=== PATIENT | female | born 1985 | race Caucasian/White ===

== ENCOUNTER 2019-10-01 04:58 | Inpatient (IN) ==
[2019-10-01] MEDS ORDERED: CITRIC ACID/SODIUM CITRATE 30 ML UDCUP PO ONE (05:10)
[2019-10-01] MEDS ORDERED: FAMOTIDINE 20 MG/2 ML VIAL IV ONE (05:10)
[2019-10-01] MEDS: LACTATED RINGERS 1,000 ML IV SCH ×2 (05:26→13:19)
[2019-10-01 05:43] LABS: Basophils % 0.4 % (0.0-0.8); Eosinophils # 0.2 10*3/uL (0.0-0.87); Eosinophils % 1.9 % (0.00-10.9); Hematocrit 43.6 VOL% (35.7-47.0); Hemoglobin 14.2 GM/DL (12.0-16.0); Immature Granulocytes % 0.9 %; Immature Granulocytes Absolute 0.09 #; Lymphocytes # 2.9 10*3/uL (1.4-4.0); Mean Corpuscular HGB Conc 32.6 GM/DL (32-36); Mean Corpuscular Volume 104.8 FL (87-102); Mean Platelet Volume 10.5 FL (9.6-12.0); Monocytes % 7.5 % (1.7-12.7); Neutrophils % 61.3 % (38.7-73.9); Platelet Count 163 T/CUMM (130-400); Red Blood Count 4.16 MC/CUMM (3.8-5.5); Red Cell Distribution Width 13.7 % (9.3-17.3); White Blood Count 10.4 T/CUMM (4-12)
[2019-10-01 06:08] LABS: Albumin 3.1 G/DL (3.4-5.0); Bilirubin,Total 0.5 MG/DL (0.2-1.0); Calcium 8.8 MG/DL (8.5-10.1); Osmolality,Calculated 270.8 MOS/KG (273-304); Total Protein 6.6 G/DL (6.4-8.3)
[2019-10-01] MEDS ORDERED: OXYTOCIN/LR 20 UNIT/1,000 ML BAG IV ONE ×3 (06:23→08:39)
[2019-10-01] MEDS ORDERED: ceFAZolin 2,000 MG in PREMIX 1 EACH IV ONE (07:00)
[2019-10-01] MEDS ORDERED: BUPIVACAINE 0.25% 50 ML VIAL ONE (07:02)
[2019-10-01] MEDS ORDERED: PHENYLEPHRINE 1 MG/10 ML SYRINGE IV ONE (07:02)
[2019-10-01] MEDS ORDERED: MORPHINE 10 MG/10 ML VIAL ONE (07:03)
[2019-10-01] MEDS ORDERED: ONDANSETRON 4 MG/2 ML VIAL ONE (07:03)
[2019-10-01] MEDS ORDERED: fentaNYL 100 MCG/2 ML VIAL ONE (07:03)
[2019-10-01] MEDS ORDERED: BUPIVACAINE SPINAL 0.75% 2 ML AMP SPINAL ONE (07:03)
[2019-10-01] MEDS ORDERED: miSOPROStoL 200 MCG TABLET ONE (07:22)
[2019-10-01] MEDS ORDERED: TRANEXAMIC ACID 1,000 MG/10 ML VIAL ONE (07:23)
[2019-10-01] MEDS ORDERED: CARBOPROST TROMETHAMINE 250 MCG/ML AMP IM ONE (07:23)
[2019-10-01] MEDS ORDERED: METHYLERGONOVINE 0.2 MG/1 ML AMP ONE (07:23)
[2019-10-01 08:38] LABS: Cord Arterial Blood HCO3 26.3 MMOL/L
[2019-10-01 08:39] LABS: Cord Venous Blood HCO3 23.5 MMOL/L; Cord Venous Blood PCO2 44.9 MMHG; Cord Venous Blood PO2 31.8
[2019-10-01] MEDS ORDERED: RHO(D) IMMUNE GLOBULIN 300 MCG SYRINGE IM ONE (08:39)
[2019-10-01] MEDS ORDERED: SIMETHICONE CHEW 80 MG TABLET PO PRN (08:39)
[2019-10-01] MEDS ORDERED: ACETAMINOPHEN 325 MG TABLET PO PRN (08:39)
[2019-10-01] MEDS ORDERED: MAGNESIUM HYDROXIDE SUSP 30 ML UDCUP PO PRN (08:39)
[2019-10-01 08:55] LABS: Apearance,Urine CLEAR (Clear); Bilirubin,Urine Negative (Negative); Blood, Urine Negative (Negative); Glucose,Urine (UA) Negative (Negative); Ketones,Urine Negative (Negative); Mucus,Urine Occasional /LPF (Occasional); Nitrite,Urine Negative (Negative); Protein,Urine Negative; Squamous Epithelial Cell,Urine Occasional /HPF (0-10); Urine Color Yellow (Yellow); Urine Urobilinogen < 2.0 EU/DL (0.2-1.0); WBC,Urine <1 /HPF (0-6)
[2019-10-01] MEDS ORDERED: LACTATED RINGERS 1,000 ML IV SCH (09:00)
[2019-10-01] MEDS ORDERED: diphenhydrAMINE 50 MG/1 ML VIAL IV PRN (09:20)
[2019-10-01] MEDS ORDERED: diphenhydrAMINE 50 MG/1 ML VIAL ONE (09:22)
[2019-10-01] MEDS: ceFAZolin 1,000 MG in SYRINGE 1 EACH IV SCH (19:01)
[2019-10-01] MEDS: DOCUSATE SODIUM 100 MG CAPSULE PO SCH (20:34)
[2019-10-02] MEDS: ONDANSETRON 4 MG/2 ML VIAL IV PRN ×3 (02:33→15:08)
[2019-10-02] MEDS: ceFAZolin 1,000 MG in SYRINGE 1 EACH IV SCH (02:51)
[2019-10-02 05:49] LABS: Basophils # 0.1 10*3/uL (0.0-0.2); Basophils % 0.3 % (0.0-0.8); Eosinophils # 0.2 10*3/uL (0.0-0.87); Eosinophils % 1.5 % (0.00-10.9); Hematocrit 35.6 VOL% (35.7-47.0); Hemoglobin 12.3 GM/DL (12.0-16.0); Immature Granulocytes % 0.6 %; Immature Granulocytes Absolute 0.09 #; Lymphocytes # 3.1 10*3/uL (1.4-4.0); Lymphocytes % 20.5 % (21.3-54.2); Mean Corpuscular HGB Conc 34.6 GM/DL (32-36); Mean Corpuscular Volume 99.4 FL (87-102); Mean Platelet Volume 10.6 FL (9.6-12.0); Monocytes % 5.7 % (1.7-12.7); Neutrophils % 71.4 % (38.7-73.9); Platelet Count 156 T/CUMM (130-400); Red Blood Count 3.58 MC/CUMM (3.8-5.5); Red Cell Distribution Width 13.7 % (9.3-17.3); White Blood Count 14.9 T/CUMM (4-12)
[2019-10-02] MEDS: MULTIVITAMIN (PRENATAL) TABLET PO SCH ×2 (09:04→09:05)
[2019-10-02] MEDS: DOCUSATE SODIUM 100 MG CAPSULE PO SCH ×2 (09:06→21:21)
[2019-10-02] MEDS: IBUPROFEN 800 MG TABLET PO PRN (21:21)
[2019-10-02] MEDS: ONDANSETRON 4 MG TABLET PO PRN (21:22)
[2019-10-03] MEDS: ONDANSETRON 4 MG TABLET PO PRN ×2 (04:19→10:34)
[2019-10-03] MEDS: IBUPROFEN 800 MG TABLET PO PRN ×2 (04:21→16:50)
[2019-10-03] MEDS: MULTIVITAMIN (PRENATAL) TABLET PO SCH (09:03)
[2019-10-03] MEDS: DOCUSATE SODIUM 100 MG CAPSULE PO SCH (09:03)
[2019-10-03 15:29] VITALS: BP 100/54
== END 2019-10-03 17:50 | disposition home or self-care (01) | DRG 540 ==
LOC: N.LD 04:58 → N.OB 10-02 06:30
PROVIDERS: ADMIT Obstetrics & Gynecology; ATTEND Obstetrics & Gynecology
PROC: LDCSECT (ICD-10-PCS; 2019-10-01 08:10)